=== PATIENT | male | born 1960 | race African-American/Black ===

== ENCOUNTER 2021-09-10 17:31 | Inpatient (IN) | payer MEDICARE, OTHER ==
[~2021-09-10] VITALS: Ht 177.8 cm; Wt 67.1 kg
--- NOTE | 2021-09-11 | NUR ---
GPS-SEARCH ENGINE OPTIMIZATION CONSULTANT NOTES ADMITTED A 61-Y/O, MALE, HOMELESS, PATIENT CAME FROM [facility]. ADMITTED ON A 5150 HOLD FOR GD. PER HOLD, PATIENT WAS DISORGANIZED, TANGENTIAL, DISINHIBITED, REQUIRES REDIRECTION AND UNABLE TO PROVIDE ANY PLAN FOR SELF CARE. UPON FACE TO FACE EVALUATION, PATIENT IS ALERT AND ORIENTED X1, DISORGANIZED, NON-SENSICAL, LOUD, HYPERVERBAL, INTERMITTENTLY FOLLOWING COMMANDS, COOPERATIVE TO CARE. SKIN ASSESSMENT DONE. WOUND CONSULT TRIGGERED. BELONGINGS WERE INVENTORIED AND CHECKED FOR CONTRABAND. PATIENT IS UNDER THE PSYCHIATRIC CARE OF DR. LACY AND MEDICAL CARE OF XANDER SERNA. BED IN LOW LOCKED POSITION. SAFETY PRECAUTIONS MAINTAINED. WILL CONTINUE TO MONITOR Q15 MINS FOR MOOD, SAFETY AND BEHAVIOR. NO FAMILY TO NOTIFY OF PATIENT'S ADMISSION.
[2021-09-11] MEDS ORDERED: ACETAMINOPHEN 325 MG TABLET PO PRN (00:30)
[2021-09-11] MEDS ORDERED: MAGNESIUM HYDROXIDE 30 ML UDC PO PRN (00:30)
[2021-09-11] MEDS ORDERED: MAG HYDROX/AL HYDROX/SIMETH 30 ML UDC PO PRN (00:30)
[2021-09-11] MEDS ORDERED: BLOOD SUGAR DIAGNOSTIC 1 EACH STRIP IN ONE (00:30)
[2021-09-11] MEDS ORDERED: NICO-676 TP (01:28)
[2021-09-11] MEDS ORDERED: GUAI-671 PO (01:28)
[2021-09-11] MEDS ORDERED: DIVA500T2 PO (01:28)
[2021-09-11] MEDS ORDERED: FERR325T23 PO (01:28)
[2021-09-11] MEDS ORDERED: MULT-754 PO (01:28)
[2021-09-11] MEDS ORDERED: RISP2TAB85 PO (01:28)
[2021-09-11] MEDS ORDERED: ACET-73 PO (01:28)
[2021-09-11] MEDS ORDERED: SENN-291 PO (01:28)
[2021-09-11] MEDS ORDERED: THIA100V2 IJ (01:28)
[2021-09-11] MEDS ORDERED: POLY17PO4 PO (01:28)
[2021-09-11] MEDS ORDERED: MELA5TAB PO (01:28)
[2021-09-11] MEDS ORDERED: ATOR80TA PO (01:28)
[2021-09-11] MEDS ORDERED: ASPI-1169 PO (01:28)
[2021-09-11] MEDS ORDERED: CARV3.12 PO (01:28)
[2021-09-11] MEDS ORDERED: NICO-762 TD (01:46)
[2021-09-11] MEDS ORDERED: POLYETHYLENE GLYCOL 3350 17 GM POWD.PACK PO PRN (02:00)
[2021-09-11] MEDS ORDERED: ACETAMINOPHEN ES 500 MG TABLET PO PRN (02:00)
--- NOTE | 2021-09-11 05:22 | NUR ---
closing notes: after being admitted after [address] in a green gown he went to sleep after he took his gown off his speech is garbled he is w/o teeth all the words run together and is a rapid talker
[2021-09-11] MEDS: OLANZAPINE 2.5 MG TABLET PO SCH ×2 (08:46→16:24)
[2021-09-11] MEDS: FERROUS SULFATE (325 MG) 325 MG/TAB TABLET PO SCH (08:46)
[2021-09-11] MEDS: ASPIRIN 81 MG TAB.CHEW PO SCH (08:46)
[2021-09-11] MEDS: MULTIVITAMINS,THERAGRAN 1 UDTAB TABLET PO SCH (08:46)
[2021-09-11] MEDS: DIVALPROEX SODIUM 500 MG TABLET.DR PO SCH ×2 (08:46→16:24)
[2021-09-11] MEDS: CARVEDILOL 3.125 MG TABLET PO SCH ×2 (08:47→21:03)
[2021-09-11] MEDS ORDERED: SENNOSIDES/DOCUSATE SODIUM 1 UDTAB TABLET PO SCH (09:00)
[2021-09-11] MEDS: THIAMINE HCL 100 MG TABLET PO SCH (09:00)
--- NOTE | 2021-09-11 09:06 | NUR ---
TAMAR Clinical Note: Pt placed on a 5150 hold for GD. Per hold, psychiatry consulted for bizarre/disorganized behavior. Pt is labile. Patient is currently homeless. SW attempted to discuss placement, pt was uncooperative. Pt does not have any supportive contact at this time.
--- NOTE | 2021-09-11 09:06 | NUR ---
TAMAR Initial Discharge Plan: Patient is currently homeless. SW attempted to discuss placement, pt was uncooperative. Pt does not have any supportive contact at this time. SW will work with the MD, treatment team, and pt to help coordinate appropriate discharge.
--- NOTE | 2021-09-11 09:07 | NUR ---
Treatment Plan: Pt refused to sign treatment plan and was hyperverbal/inappropriate.
[2021-09-11] MEDS: NICOTINE PATCH (21MG) 21 MG PATCH.TD24 TD SCH (10:27)
[2021-09-11] MEDS ORDERED: Medication Not On Formulary EA (Melatonin 1 TAB) PO SCH (18:00)
--- NOTE | 2021-09-11 18:35 | NUR ---
PT COMPLIANT WITH TAKEN MEDICATIONS ONCE CRUSHED AND PUT INTO THE APPLE SAUCE EACH TIME, APPEARED TO HAVE TROUBLE SWALLOWING THEM WHOLE OR JUST DID NOT LIKE THE FEELING OF IT, CRUSHED WAS EASIER AND BETTER, PT SLEPT AND THEN GOT UP AND AMBULATED IN SA[address] WAY OFTEN AND SPILLED WATER ALL OVER THE FLOOR, REDIRECTED AND WENT TO ROOM TO REST UP.
[2021-09-11] MEDS: clonazePAM 0.5 MG TABLET PO PRN (19:42)
--- NOTE | 2021-09-11 19:44 | NUR ---
RN NOTES: ANXIETY PT. C/O FEELING ANXIOUS .RESTLESS ,PARANOID, PACING IN HALLWAY ,PRN KLONOPIN 0.5 MG PO GIVEN PER PT. REQUEST, WILL CONTINUE TO MONITOR.
[2021-09-11 20:00] VITALS: BP 135/79
[2021-09-11] MEDS: ATORVASTATIN 40 MG TABLET PO SCH (21:03)
[2021-09-12] MEDS: TEMAZEPAM 7.5 MG CAPSULE PO PRN (00:07)
--- NOTE | 2021-09-12 00:08 | NUR ---
RN NOTES: INSOMNIA PT. C/O UNABLE TO SLEEP ,PRN RESTORIL 15 MG GIVEN PO FOR SLEEP WILL CONTINUE TO MONITOR.
[2021-09-12 07:32] LABS: CHOLESTEROL 124 mg/dL (<200); HDL CHOLESTEROL 68 mg/dL (40-60); LDL 41 mg/dL (0-99); TRIGLYCERIDES 39 mg/dL (30-150)
[2021-09-12 07:33] LABS: ALBUMIN 2.5 g/dL (3.4-5.0); BILIRUBIN,TOTAL 0.2 mg/dL (0.2-1.0); CREATININE 0.9 mg/dL (0.6-1.3); POTASSIUM 4.9 mmol/L (3.5-5.1)
[2021-09-12 08:00] VITALS: BP 134/59
[2021-09-12] MEDS: ASPIRIN 81 MG TAB.CHEW PO SCH (09:02)
[2021-09-12] MEDS: NICOTINE PATCH (21MG) 21 MG PATCH.TD24 TD SCH (09:02)
[2021-09-12] MEDS: SENNOSIDES 8.6 MG TABLET PO SCH (09:02)
[2021-09-12] MEDS: CARVEDILOL 3.125 MG TABLET PO SCH ×2 (09:03→21:19)
[2021-09-12] MEDS: THIAMINE HCL 100 MG TABLET PO SCH (09:03)
[2021-09-12] MEDS: DIVALPROEX SODIUM 500 MG TABLET.DR PO SCH ×2 (09:03→16:18)
[2021-09-12] MEDS: FERROUS SULFATE (325 MG) 325 MG/TAB TABLET PO SCH (09:03)
[2021-09-12] MEDS: DOCUSATE SODIUM 100 MG CAPSULE PO SCH (09:03)
[2021-09-12] MEDS: OLANZAPINE 2.5 MG TABLET PO SCH ×2 (09:03→16:18)
[2021-09-12] MEDS: MULTIVITAMINS,THERAGRAN 1 UDTAB TABLET PO SCH (09:05)
--- NOTE | 2021-09-12 10:35 | NUR ---
Court Hearing: Patient's court hearing for 3940 was today and it was upheld for GD.
--- NOTE | 2021-09-12 10:35 | NUR ---
Court Notification: Pt does not have any supportive contact to notify of 1971.
--- NOTE | 2021-09-12 10:37 | NUR ---
WOUND CARE CONSULT: PT PRESENTS WITH DRY ABRASIONS/SCABS TO LEFT LOWER LEG AND KNEE, PRESENT ON ADMISSION. NO ERYTHEMA, DRAINAGE OR TENDERNESS NOTED. WILL SEE PRN. PT IS AMBULATORY.
[2021-09-12 16:00] VITALS: BP 129/85
--- NOTE | 2021-09-12 20:06 | NUR ---
RN NOTES: PT.WATCHING TV IN DAY ROOM, CONFUSED,FLAT AFFECT,DISORGNIZED,ANXIOUS,EASILY AGITATED.PARANOID UNCOOPERTIVE, TALKING TO SELF ,HYPERVERBAL NEEDY DEMENDING ,NEEDS FREQUENTLY REDIRECTIONS, ENCOURAGED PT. TO VERBALIZED ANY FEELING OR CONCERN AND GROUP ACTIVITY, , HIGH FALL RISK,WILL CONTINUE.MONITORING FOR SAFETY AND BEHAVIOR.
[2021-09-12 20:29] VITALS: BP 107/65
[2021-09-12] MEDS: ATORVASTATIN 40 MG TABLET PO SCH (21:19)
[2021-09-12] MEDS: clonazePAM 0.5 MG TABLET PO PRN (22:37)
--- NOTE | 2021-09-12 22:38 | NUR ---
RN NOTES: ANXIETY PT. C/O FEELING ANXIOUS .RESTLESS ,PARANOID, PACING IN HALLWAY , HYPERVERBAL,PRN KLONOPIN 0.5 MG PO GIVEN PER PT. REQUEST, WILL CONTINUE WITH PLAN OF CARE.
--- NOTE | 2021-09-12 23:08 | NUR ---
GPS RN NOTE, PATIENT SODIUM LEVEL 130 ON 09/12/21 AT 0615. PAGED [facility] AND INFORMED MARCELL TREJO NP OF MY FINDINGS. MARCELL TREJO NP ORDERED SODIUM CHLORIDE TABLET 2,000MG PO DAILY. ALL ORDERS NOTED AND CARRIED OUT. WILL CONTINUE TO MONITOR THIS PATIENT WITH THE HELP OF STAFF.
[2021-09-13 08:00] VITALS: BP 131/87
[2021-09-13] MEDS: ASPIRIN 81 MG TAB.CHEW PO SCH (08:21)
[2021-09-13] MEDS: OLANZAPINE 2.5 MG TABLET PO SCH ×2 (08:21→16:21)
[2021-09-13] MEDS: DIVALPROEX SODIUM 500 MG TABLET.DR PO SCH ×2 (08:21→16:21)
[2021-09-13] MEDS: FERROUS SULFATE (325 MG) 325 MG/TAB TABLET PO SCH (08:21)
[2021-09-13] MEDS: SENNOSIDES 8.6 MG TABLET PO SCH (08:21)
[2021-09-13] MEDS: NICOTINE PATCH (21MG) 21 MG PATCH.TD24 TD SCH (08:21)
[2021-09-13] MEDS: MULTIVITAMINS,THERAGRAN 1 UDTAB TABLET PO SCH (08:21)
[2021-09-13] MEDS: THIAMINE HCL 100 MG TABLET PO SCH (08:21)
[2021-09-13] MEDS: clonazePAM 0.5 MG TABLET PO PRN ×2 (08:22→22:02)
[2021-09-13] MEDS: CARVEDILOL 3.125 MG TABLET PO SCH ×2 (08:22→21:09)
[2021-09-13] MEDS: DOCUSATE SODIUM 100 MG CAPSULE PO SCH (08:22)
[2021-09-13] MEDS: SODIUM CHLORIDE 1000 MG TABLET PO SCH (08:23)
--- NOTE | 2021-09-13 09:35 | NUR ---
RN Notes: Received pt. awake in the room, responsive to staffs and hyperverbal with garbled speech. Pt. ate 100% for breakfast, compliant on meds. Pt. is anxious and prn of Klonopin given. Pt.. is needy, needs frequent redirection and disheveled. Encouraged to verbalize feelings, motivated to attend group activity and encouraged to take shower. Needs attended and will continue to monitor for safety.
[2021-09-13 16:00] VITALS: BP 121/72
[2021-09-13 20:27] VITALS: BP 138/72
[2021-09-13] MEDS: ATORVASTATIN 40 MG TABLET PO SCH (21:09)
[2021-09-14 08:00] VITALS: BP 150/87
--- NOTE | 2021-09-14 08:10 | NUR ---
RN OPENING NOTE PATIENT AWAKE IN BED RESTING. A/O X1 CONFUSED, HYPERVERBAL, EASILY AGITATED. NO S/S OF PAIN NOTED AT THIS TIME. ON ROOM AIR, NO DISTRESS OR SHORTNESS OF BREATH NOTED. PATIENT IS COMPLIANT WITH MEDICATIONS. PATIENT DENIES SUICIDE IDEATION AND HOMICIDAL IDEATIONS AT THIS TIME. FALL AND SAFETY MEASURES IN PLACE, BED ALARM ON, BED IN LOW AND LOCK POSITION, CALL LIGHT AND TABLE WITHIN EASY REACH, SIDE RAILS UP X2. WILL CONTINUE TO MONITOR Q15 MINUTES WITH HELP OF STAFF TO MAINTAIN SAFETY.
[2021-09-14] MEDS: NICOTINE PATCH (21MG) 21 MG PATCH.TD24 TD SCH (09:38)
[2021-09-14] MEDS: DIVALPROEX SODIUM 500 MG TABLET.DR PO SCH ×2 (09:38→16:46)
[2021-09-14] MEDS: SODIUM CHLORIDE 1000 MG TABLET PO SCH (09:38)
[2021-09-14] MEDS: SENNOSIDES 8.6 MG TABLET PO SCH (09:38)
[2021-09-14] MEDS: FERROUS SULFATE (325 MG) 325 MG/TAB TABLET PO SCH (09:39)
[2021-09-14] MEDS: DOCUSATE SODIUM 100 MG CAPSULE PO SCH (09:39)
[2021-09-14] MEDS: ASPIRIN 81 MG TAB.CHEW PO SCH (09:39)
[2021-09-14] MEDS: THIAMINE HCL 100 MG TABLET PO SCH (09:39)
[2021-09-14] MEDS: OLANZAPINE 2.5 MG TABLET PO SCH ×2 (09:39→16:46)
[2021-09-14] MEDS: MULTIVITAMINS,THERAGRAN 1 UDTAB TABLET PO SCH (09:39)
[2021-09-14] MEDS: CARVEDILOL 3.125 MG TABLET PO SCH ×2 (09:40→20:16)
[2021-09-14 16:00] VITALS: BP 140/81
[2021-09-14 19:59] VITALS: BP 135/75
[2021-09-14] MEDS: ATORVASTATIN 40 MG TABLET PO SCH (21:20)
[2021-09-14] MEDS: TEMAZEPAM 7.5 MG CAPSULE PO PRN (22:44)
[2021-09-15 08:00] VITALS: BP 137/79
[2021-09-15] MEDS: NICOTINE PATCH (21MG) 21 MG PATCH.TD24 TD SCH (08:14)
[2021-09-15] MEDS: OLANZAPINE 2.5 MG TABLET PO SCH ×2 (08:14→16:15)
[2021-09-15] MEDS: MULTIVITAMINS,THERAGRAN 1 UDTAB TABLET PO SCH (08:15)
[2021-09-15] MEDS: DIVALPROEX SODIUM 500 MG TABLET.DR PO SCH ×2 (08:15→16:15)
[2021-09-15] MEDS: FERROUS SULFATE (325 MG) 325 MG/TAB TABLET PO SCH (08:15)
[2021-09-15] MEDS: THIAMINE HCL 100 MG TABLET PO SCH (08:15)
[2021-09-15] MEDS: ASPIRIN 81 MG TAB.CHEW PO SCH (08:15)
[2021-09-15] MEDS: SODIUM CHLORIDE 1000 MG TABLET PO SCH (08:15)
[2021-09-15] MEDS: CARVEDILOL 3.125 MG TABLET PO SCH ×2 (08:16→21:15)
[2021-09-15] MEDS: SENNOSIDES 8.6 MG TABLET PO SCH (08:23)
[2021-09-15] MEDS: DOCUSATE SODIUM 100 MG CAPSULE PO SCH (08:23)
--- NOTE | 2021-09-15 14:08 | NUR ---
SNF Referral: TAMAR sent clinicals to Maribell Larson ([phone]) from [facility] for placement option. SW sent h & p, progress notes, and medication list.
[2021-09-15 16:00] VITALS: BP 150/75
[2021-09-15 20:03] VITALS: BP 143/92
[2021-09-15 20:11] VITALS: BP 143/92
[2021-09-15 21:10] VITALS: BP 133/76
[2021-09-15] MEDS: ATORVASTATIN 40 MG TABLET PO SCH (21:33)
[2021-09-16] MEDS: TEMAZEPAM 7.5 MG CAPSULE PO PRN ×2 (00:30→21:35)
--- NOTE | 2021-09-16 00:32 | NUR ---
RN NOTE: INSOMNIA PATIENT IS UNABLE TO SLEEP, KEEPS WANDERING IN THE HALLWAY, PARANOID, LABILE, RESTLESS AND STATED," I CAN NOT GO TO SLEEP." PRN RESTORIL 15 MG PO ADMINISTERED ORDERED. WILL CONTINUE TO MONITOR.
[2021-09-16 08:00] VITALS: BP 143/78
[2021-09-16] MEDS: THIAMINE HCL 100 MG TABLET PO SCH (08:35)
[2021-09-16] MEDS: ASPIRIN 81 MG TAB.CHEW PO SCH (08:35)
[2021-09-16] MEDS: MULTIVITAMINS,THERAGRAN 1 UDTAB TABLET PO SCH (08:35)
[2021-09-16] MEDS: SENNOSIDES 8.6 MG TABLET PO SCH (08:35)
[2021-09-16] MEDS: DIVALPROEX SODIUM 500 MG TABLET.DR PO SCH ×2 (08:36→16:38)
[2021-09-16] MEDS: OLANZAPINE 2.5 MG TABLET PO SCH ×2 (08:36→16:38)
[2021-09-16] MEDS: CARVEDILOL 3.125 MG TABLET PO SCH ×2 (08:37→21:03)
[2021-09-16] MEDS: FERROUS SULFATE (325 MG) 325 MG/TAB TABLET PO SCH (08:37)
[2021-09-16] MEDS: DOCUSATE SODIUM 100 MG CAPSULE PO SCH (08:37)
[2021-09-16] MEDS: NICOTINE PATCH (21MG) 21 MG PATCH.TD24 TD SCH (08:38)
[2021-09-16] MEDS: SODIUM CHLORIDE 1000 MG TABLET PO SCH (09:50)
[2021-09-16 16:00] VITALS: BP 106/72
--- NOTE | 2021-09-16 19:35 | NUR ---
GPS RN OPENING NOTES: RECEIVED PATIENT AMBULATING IN HALLWAY, A/O X1. FLAT AFFECT, DISHEVELED, UNKEPT, MALODOROUS, HYPERVERBAL, DISORIENTED, DISORGANIZED, CONFUSED, DIFFICULT TO REDIRECT. NO S/S OF DISTRESS. RESPIRATION EVEN AND UNLABORED WITH EQUAL RISE AND FALL OF THE CHEST, ON ROOM AIR. OFFERED FLUID AND SNACKS TOLERATED. WILL CONTINUE TO MONITOR Q15 FOR MOOD, SAFETY AND BEHAVIOR.
[2021-09-16 20:22] VITALS: BP 127/89
[2021-09-16] MEDS: ATORVASTATIN 40 MG TABLET PO SCH (21:02)
[2021-09-16] MEDS: clonazePAM 0.5 MG TABLET PO PRN (21:04)
--- NOTE | 2021-09-16 21:11 | NUR ---
GPS RN NOTES: PATIENT IS RESTLESS, ANXIOUS, HYPERVERBAL, PACING, DIFFICULT TO REDIRECT. KLONOPIN 0.5MG GIVEN PO AT 2106. WILL CONTINUE TO MONITOR.
[2021-09-17 08:00] VITALS: BP 128/66
--- NOTE | 2021-09-17 08:00 | NUR ---
RN NOTES RECEIVED PATIENT AMBULATING IN THE ROOM, A/O X1. FLAT AFFECT, LABILE, DISHEVELED, UNKEPT, MALODOROUS, HYPERVERBAL, RESTLESS, ANXIOUS, DISORIENTED, DISORGANIZED, CONFUSED, DIFFICULT TO REDIRECT. NO S/S OF DISTRESS. RESPIRATION EVEN AND UNLABORED WITH EQUAL RISE AND FALL OF THE CHEST, ON ROOM AIR. OFFERED FLUID AND SNACKS TOLERATED. WILL CONTINUE TO MONITOR Q15 FOR MOOD, SAFETY AND BEHAVIOR.
[2021-09-17] MEDS: MULTIVITAMINS,THERAGRAN 1 UDTAB TABLET PO SCH (08:36)
[2021-09-17] MEDS: ASPIRIN 81 MG TAB.CHEW PO SCH (08:36)
[2021-09-17] MEDS: DIVALPROEX SODIUM 500 MG TABLET.DR PO SCH ×2 (08:36→17:13)
[2021-09-17] MEDS: OLANZAPINE 2.5 MG TABLET PO SCH (08:36)
[2021-09-17] MEDS: NICOTINE PATCH (21MG) 21 MG PATCH.TD24 TD SCH (08:36)
[2021-09-17] MEDS: THIAMINE HCL 100 MG TABLET PO SCH (08:36)
[2021-09-17] MEDS: DOCUSATE SODIUM 100 MG CAPSULE PO SCH (08:37)
[2021-09-17] MEDS: SENNOSIDES 8.6 MG TABLET PO SCH (08:37)
[2021-09-17] MEDS: CARVEDILOL 3.125 MG TABLET PO SCH ×2 (08:37→21:19)
[2021-09-17] MEDS: FERROUS SULFATE (325 MG) 325 MG/TAB TABLET PO SCH (08:37)
[2021-09-17] MEDS: SODIUM CHLORIDE 1000 MG TABLET PO SCH (08:37)
[2021-09-17 16:00] VITALS: BP 150/88
[2021-09-17] MEDS ORDERED: OLANZAPINE 2.5 MG TABLET PO SCH (17:00)
--- NOTE | 2021-09-17 19:15 | NUR ---
GPS RN NOTES RECEIVED PATIENT PACING IN THE HALLWAY. ALERT AND ORIENTED X2. NO S/SX OF ACUTE DISTRESS NOTED. PATIENT REMAINS ANXIOUS, DISORGANIZED, CONFUSED, LABILE, GARBLED SPEECH, PT IS FOCUSED ON FOOD. NO VERBALIZATION OF THOUGHTS AND FEELINGS. SAFETY PRECAUTIONS IN PLACE. WILL CONTINUE TO MONITOR Q15MIN ROUNDS FOR SAFETY AND BEHAVIOR.
[2021-09-17 20:00] VITALS: BP 142/97
[2021-09-17] MEDS: ATORVASTATIN 40 MG TABLET PO SCH (21:18)
[2021-09-17] MEDS: TEMAZEPAM 7.5 MG CAPSULE PO PRN (21:19)
[2021-09-17] MEDS: clonazePAM 0.5 MG TABLET PO PRN (22:12)
[2021-09-18 08:00] VITALS: BP 137/76
[2021-09-18] MEDS: SENNOSIDES 8.6 MG TABLET PO SCH (08:49)
[2021-09-18] MEDS: DOCUSATE SODIUM 100 MG CAPSULE PO SCH (08:49)
[2021-09-18] MEDS: SODIUM CHLORIDE 1000 MG TABLET PO SCH (08:49)
[2021-09-18] MEDS: MULTIVITAMINS,THERAGRAN 1 UDTAB TABLET PO SCH (08:49)
[2021-09-18] MEDS: THIAMINE HCL 100 MG TABLET PO SCH (08:49)
[2021-09-18] MEDS: ASPIRIN 81 MG TAB.CHEW PO SCH (08:49)
[2021-09-18] MEDS: FERROUS SULFATE (325 MG) 325 MG/TAB TABLET PO SCH (08:50)
[2021-09-18] MEDS: DIVALPROEX SODIUM 500 MG TABLET.DR PO SCH ×2 (08:50→17:35)
[2021-09-18] MEDS: NICOTINE PATCH (21MG) 21 MG PATCH.TD24 TD SCH (08:50)
[2021-09-18] MEDS: CARVEDILOL 3.125 MG TABLET PO SCH ×2 (08:50→21:21)
[2021-09-18] MEDS: OLANZAPINE 10 MG TABLET PO SCH ×2 (08:52→17:35)
[2021-09-18 16:00] VITALS: BP 127/96
--- NOTE | 2021-09-18 18:48 | NUR ---
RN-NOTES PATIENT IS VISIBLE IN THE UNIT,HYPERVERBAL,NEEDY,NO ACUTE DISTRESS NOTED. ABLE TO MAKE NEEDS KNOWN TO THE STAFF. AMBULATORY STEADY GAIT.ALL NEEDS ATTENDED AND ANTICIPATED. WILL CONT. MONITORING FOR SAFETY AND BEHAVIOR. WILL ENDORSE TO INCOMING NURSE FOR CONTINUITY OF CARE.
--- NOTE | 2021-09-18 19:46 | NUR ---
GPS RN OPENING NOTES: RECEIVED PATIENT AMBULATING IN HALLWAY, A/O X1. FLAT AFFECT, DISHEVELED, UNKEPT, MALODOROUS, HYPERVERBAL, DISORIENTED, DISORGANIZED, CONFUSED, DIFFICULT TO REDIRECT. NO SIGN SOB/DISTRESS NOTED.BUT NOT AGGRESSIVE TO OTHER.OFFERED FLUID AND SNACKS TOLERATED. WILL CONTINUE TO MONITOR Q15 FOR MOOD, SAFETY AND BEHAVIOR.
[2021-09-18] MEDS: ATORVASTATIN 40 MG TABLET PO SCH (21:21)
[2021-09-19] MEDS: TEMAZEPAM 7.5 MG CAPSULE PO PRN (02:46)
[2021-09-19 08:00] VITALS: BP 145/94
[2021-09-19] MEDS: THIAMINE HCL 100 MG TABLET PO SCH (08:32)
[2021-09-19] MEDS: DIVALPROEX SODIUM 500 MG TABLET.DR PO SCH ×2 (08:32→16:39)
[2021-09-19] MEDS: SODIUM CHLORIDE 1000 MG TABLET PO SCH (08:32)
[2021-09-19] MEDS: OLANZAPINE 10 MG TABLET PO SCH ×2 (08:32→16:39)
[2021-09-19] MEDS: NICOTINE PATCH (21MG) 21 MG PATCH.TD24 TD SCH (08:32)
[2021-09-19] MEDS: ASPIRIN 81 MG TAB.CHEW PO SCH (08:32)
[2021-09-19] MEDS: FERROUS SULFATE (325 MG) 325 MG/TAB TABLET PO SCH (08:32)
[2021-09-19] MEDS: DOCUSATE SODIUM 100 MG CAPSULE PO SCH (08:32)
[2021-09-19] MEDS: MULTIVITAMINS,THERAGRAN 1 UDTAB TABLET PO SCH (08:32)
[2021-09-19] MEDS: CARVEDILOL 3.125 MG TABLET PO SCH ×2 (08:33→21:25)
[2021-09-19] MEDS: SENNOSIDES 8.6 MG TABLET PO SCH (08:33)
[2021-09-19 16:06] VITALS: BP 150/68
--- NOTE | 2021-09-19 17:44 | NUR ---
RN-NOTES PATIENT IS VISIBLE IN THE UNIT,A/O X1 ,HYPERVERBAL,NEEDY, FOCUS ON COFFEE,NO ACUTE DISTRESS NOTED. ABLE TO MAKE NEEDS KNOWN TO THE STAFF. AMBULATORY STEADY GAIT.ALL NEEDS ATTENDED AND ANTICIPATED. WILL CONT. MONITORING FOR SAFETY AND BEHAVIOR. WILL ENDORSE TO INCOMING NURSE FOR CONTINUITY OF CARE.
[2021-09-19 19:58] VITALS: BP 142/91
[2021-09-19 20:56] VITALS: BP 142/90
[2021-09-19] MEDS: ATORVASTATIN 40 MG TABLET PO SCH (22:26)
[2021-09-20 08:00] VITALS: BP 136/78
[2021-09-20] MEDS: NICOTINE PATCH (21MG) 21 MG PATCH.TD24 TD SCH (08:06)
[2021-09-20] MEDS: OLANZAPINE 10 MG TABLET PO SCH ×2 (08:06→16:34)
[2021-09-20] MEDS: FERROUS SULFATE (325 MG) 325 MG/TAB TABLET PO SCH (08:06)
[2021-09-20] MEDS: SENNOSIDES 8.6 MG TABLET PO SCH (08:06)
[2021-09-20] MEDS: DOCUSATE SODIUM 100 MG CAPSULE PO SCH (08:06)
[2021-09-20] MEDS: SODIUM CHLORIDE 1000 MG TABLET PO SCH (08:06)
[2021-09-20] MEDS: DIVALPROEX SODIUM 500 MG TABLET.DR PO SCH ×2 (08:06→16:34)
[2021-09-20] MEDS: MULTIVITAMINS,THERAGRAN 1 UDTAB TABLET PO SCH (08:06)
[2021-09-20] MEDS: ASPIRIN 81 MG TAB.CHEW PO SCH (08:06)
[2021-09-20] MEDS: THIAMINE HCL 100 MG TABLET PO SCH (08:07)
[2021-09-20] MEDS: CARVEDILOL 3.125 MG TABLET PO SCH ×2 (08:07→21:09)
[2021-09-20] MEDS: clonazePAM 0.5 MG TABLET PO PRN (08:25)
--- NOTE | 2021-09-20 08:28 | NUR ---
RN-NOTES NOTED PATIENT PACING IN THE HALLWAY,TALKING TO SELF. KLONOPIN 0.5MG P.O GIVEN PRN ORDER. WILL CONT. MONITORING FOR SAFETY AND BEHAVIOR.
--- NOTE | 2021-09-20 09:30 | NUR ---
RN-NOTES PATIENT IN THE DAY ROOM SITTING IN THE CHAIR,CALM AND QUIET. NO ACUTE DISTRESS NOTED.
[2021-09-20 16:00] VITALS: BP 139/91
[2021-09-20 20:22] VITALS: BP 140/90
[2021-09-20 20:29] VITALS: BP 140/90
[2021-09-20] MEDS: ATORVASTATIN 40 MG TABLET PO SCH (21:20)
[2021-09-21 07:22] LABS: BASOPHILS # (AUTO) 0.1 K/uL (0.0-0.2); BASOPHILS % (AUTO) 0.9 % (0.0-2.0); EOSINOPHILS % (AUTO) 1.6 % (0.0-6.0); HEMATOCRIT 33 % (39-51); HEMOGLOBIN 10.5 g/dL (13.5-17.5); LYMPHOCYTES # (AUTO) 1.5 K/uL (0.8-4.8); LYMPHOCYTES % (AUTO) 27.6 % (20.0-44.0); MEAN CORPUSCULAR HGB CONC 32 g/dl (31.0-36.0); MEAN CORPUSCULAR VOLUME 88 fL (80-96); MONOCYTES # (AUTO) 0.8 K/uL (0.1-1.30); MONOCYTES % (AUTO) 13.7 % (2.0-12.0); NEUTROPHILS # (AUTO) 3.1 K/uL (1.8-8.9); NEUTROPHILS % (AUTO) 56.2 % (43.0-81.0); PLATELET COUNT (AUTO) 346 K/uL (150-450); RED BLOOD CELL COUNT(AUTO) 3.74 MIL/uL (4.5-6.0); WHITE BLOOD COUNT (AUTO) 5.6 K/uL (4.3-11.0)
[2021-09-21] MEDS: clonazePAM 0.5 MG TABLET PO PRN ×2 (07:58→21:25)
--- NOTE | 2021-09-21 07:58 | NUR ---
RN-CO: KLONOPIN GIVEN FOR RESTLESSNESS AND SPILLING MILK ON THE FLOOR.
[2021-09-21] MEDS: DIVALPROEX SODIUM 500 MG TABLET.DR PO SCH ×2 (08:00→16:07)
[2021-09-21] MEDS: MULTIVITAMINS,THERAGRAN 1 UDTAB TABLET PO SCH (08:00)
[2021-09-21] MEDS: OLANZAPINE 10 MG TABLET PO SCH ×2 (08:00→16:07)
[2021-09-21] MEDS: FERROUS SULFATE (325 MG) 325 MG/TAB TABLET PO SCH (08:01)
[2021-09-21] MEDS: SENNOSIDES 8.6 MG TABLET PO SCH (08:01)
[2021-09-21] MEDS: THIAMINE HCL 100 MG TABLET PO SCH (08:01)
[2021-09-21] MEDS: DOCUSATE SODIUM 100 MG CAPSULE PO SCH (08:02)
[2021-09-21] MEDS: ASPIRIN 81 MG TAB.CHEW PO SCH (08:02)
[2021-09-21] MEDS: SODIUM CHLORIDE 1000 MG TABLET PO SCH (08:02)
[2021-09-21] MEDS: CARVEDILOL 3.125 MG TABLET PO SCH ×2 (08:02→21:24)
[2021-09-21] MEDS: NICOTINE PATCH (21MG) 21 MG PATCH.TD24 TD SCH (08:03)
[2021-09-21 08:45] LABS: ALBUMIN 2.5 g/dL (3.4-5.0); BILIRUBIN,TOTAL 0.3 mg/dL (0.2-1.0); CALCIUM, SERUM 8.6 mg/dL (8.5-10.1); CREATININE 0.8 mg/dL (0.6-1.3); POTASSIUM 4.4 mmol/L (3.5-5.1); TOTAL PROTEIN, SERUM 6.3 g/dL (6.4-8.2)
--- NOTE | 2021-09-21 09:20 | NUR ---
RN-CO: PATIENT IS VISIBLE IN THE UNIT, DISHEVELED, UNKEMPT AND MALODOROUS. HE IS DISORGANIZED, TALKING TO HIMSELF, NEEDY. HE NEEDS CONSTANT REDIRECTION. NO ACUTE DISTRESS NOTED.
[2021-09-21 16:00] VITALS: BP 153/96
--- NOTE | 2021-09-21 19:30 | NUR ---
GPS RN OPENING NOTES: RECEIVED PATIENT AMBULATING IN HALLWAY, A/O X1. FLAT AFFECT, DISHEVELED, UNKEPT, MALODOROUS, HYPERVERBAL, DISORIENTED, DISORGANIZED, CONFUSED, NEEDS FREQUENT REDIRECTION. NO S/S OF DISTRESS. RESPIRATION EVEN AND UNLABORED WITH EQUAL RISE AND FALL OF THE CHEST, ON ROOM AIR. OFFERED FLUID AND SNACKS TOLERATED. WILL CONTINUE TO MONITOR Q15 FOR MOOD, SAFETY AND BEHAVIOR.
[2021-09-21 19:47] VITALS: BP 150/79
[2021-09-21] MEDS: ATORVASTATIN 40 MG TABLET PO SCH (21:23)
--- NOTE | 2021-09-21 21:31 | NUR ---
GPS RN NOTES: PATIENT IS RESTLESS, ANXIOUS, HYPERVERBAL, PACING, DIFFICULT TO REDIRECT. KLONOPIN 0.5MG GIVEN PO AT 2124. WILL CONTINUE TO MONITOR.
[2021-09-21] MEDS: TEMAZEPAM 7.5 MG CAPSULE PO PRN (21:58)
--- NOTE | 2021-09-21 21:59 | NUR ---
GPS RN NOTES: RESTORIL 15MG GIVEN PO AT 2158 D/T INSOMNIA. WILL CONTINUE TO MONITOR.
--- NOTE | 2021-09-22 01:26 | NUR ---
GPS RN NOTES: PATIENT REFUSED WEEKLY SKIN ASSESSMENT.
[2021-09-22 08:00] VITALS: BP 139/90
[2021-09-22] MEDS: SODIUM CHLORIDE 1000 MG TABLET PO SCH (08:11)
[2021-09-22] MEDS: CARVEDILOL 3.125 MG TABLET PO SCH ×2 (08:11→21:45)
[2021-09-22] MEDS: MULTIVITAMINS,THERAGRAN 1 UDTAB TABLET PO SCH (08:11)
[2021-09-22] MEDS: ASPIRIN 81 MG TAB.CHEW PO SCH (08:11)
[2021-09-22] MEDS: DIVALPROEX SODIUM 500 MG TABLET.DR PO SCH ×2 (08:11→16:22)
[2021-09-22] MEDS: FERROUS SULFATE (325 MG) 325 MG/TAB TABLET PO SCH (08:12)
[2021-09-22] MEDS: THIAMINE HCL 100 MG TABLET PO SCH (08:12)
[2021-09-22] MEDS: SENNOSIDES 8.6 MG TABLET PO SCH (08:12)
[2021-09-22] MEDS: OLANZAPINE 10 MG TABLET PO SCH ×2 (08:12→16:22)
[2021-09-22] MEDS: NICOTINE PATCH (21MG) 21 MG PATCH.TD24 TD SCH (08:12)
[2021-09-22] MEDS: DOCUSATE SODIUM 100 MG CAPSULE PO SCH (08:14)
[2021-09-22] MEDS: clonazePAM 0.5 MG TABLET PO PRN ×2 (08:25→21:48)
--- NOTE | 2021-09-22 08:25 | NUR ---
RN-CO: KLONOPIN 0.5 MG PO GIVEN FOR RESTLESSNESS AND IRRITABILITY.
--- NOTE | 2021-09-22 09:21 | NUR ---
RN-CO: PATIENT IS VISIBLE IN THE UNIT, CONSTANTLY GOING TO NURSING STATION TO GET ATTENTION FROM THE STAFF. HE IS EXTREMELY DISHEVELED AND MALODOROUS BUT AGRRED TO SHOWER TODAY. HE IS RESTLESS AND SPILLING JUICES AND MILK ON THE FLOOR. HE NEEDS CONSTANT REDIRECTION BECAUSE HE IS DISRUPTIVE WITH THE WORK OF THE STAFF. WE WILL CONTINUE TO MONITOR AND ATTEND TO HIS NEEDS.
[2021-09-22 16:00] VITALS: BP 113/74
--- NOTE | 2021-09-22 19:40 | NUR ---
GPS RN OPENING NOTES: RECEIVED PATIENT AMBULATING IN HALLWAY, A/O X1. FLAT AFFECT, DISHEVELED, RAMBLING SPEECH, HYPERVERBAL, DISORIENTED, DISORGANIZED, CONFUSED, NEEDS FREQUENT REDIRECTION. NO S/S OF DISTRESS. RESPIRATION EVEN AND UNLABORED WITH EQUAL RISE AND FALL OF THE CHEST, ON ROOM AIR. OFFERED FLUID AND SNACKS TOLERATED. WILL CONTINUE TO MONITOR Q15 FOR MOOD, SAFETY AND BEHAVIOR.
[2021-09-22 20:06] VITALS: BP 145/88
[2021-09-22] MEDS: ATORVASTATIN 40 MG TABLET PO SCH (21:43)
--- NOTE | 2021-09-22 21:53 | NUR ---
GPS RN NOTES: PATIENT IS RESTLESS, ANXIOUS, HYPERVERBAL, PACING, DIFFICULT TO REDIRECT. KLONOPIN 0.5MG GIVEN PO AT 2148. WILL CONTINUE TO MONITOR.
[2021-09-22] MEDS: TEMAZEPAM 7.5 MG CAPSULE PO PRN (22:32)
--- NOTE | 2021-09-22 22:34 | NUR ---
GPS RN NOTES: RESTORIL 15MG GIVEN PO AT 2232 D/T INSOMNIA. WILL CONTINUE TO MONITOR.
[2021-09-23 08:00] VITALS: BP 135/71
--- NOTE | 2021-09-23 08:15 | NUR ---
SW Discharge Note: Patient will be discharged to [facility] located at [address] [place] [id number]; ([phone]). Please arrange ambulance transportation at 1Pm. Harika franklin from [facility] accepted pt and is welcoming pt today. Pt does not have any supportive contact at this time. Pt appears to be alert and oriented x2 and is willing to go to the nursing facility. Pt denies visual/auditory hallucinations. Pt denies denies suicidal or homicidal ideation Patient will follow-up at the facility with Dr. Hartman [address] [facility] [address], [place] [address]; ([phone]) and ([employer]) Dr. Jade [address] [facility] [address], [place] [address]; ([phone]). Patient refused to sign the homeless waiver upon discharge and a copy was placed in the chart. Homeless resources were provided and include [address] information line for shelters and homeless resources. A copy of all resources given to patient was also placed in the chart. Pt presented with euthymic mood and congruent affect.
[2021-09-23] MEDS: DOCUSATE SODIUM 100 MG CAPSULE PO SCH (09:27)
[2021-09-23] MEDS: SENNOSIDES 8.6 MG TABLET PO SCH (09:27)
[2021-09-23] MEDS: MULTIVITAMINS,THERAGRAN 1 UDTAB TABLET PO SCH (09:27)
[2021-09-23] MEDS: DIVALPROEX SODIUM 500 MG TABLET.DR PO SCH (09:28)
[2021-09-23] MEDS: OLANZAPINE 10 MG TABLET PO SCH (09:28)
[2021-09-23] MEDS: SODIUM CHLORIDE 1000 MG TABLET PO SCH (09:28)
[2021-09-23] MEDS: FERROUS SULFATE (325 MG) 325 MG/TAB TABLET PO SCH (09:28)
[2021-09-23] MEDS: ASPIRIN 81 MG TAB.CHEW PO SCH (09:28)
[2021-09-23] MEDS: THIAMINE HCL 100 MG TABLET PO SCH (09:28)
[2021-09-23 09:29] VITALS: BP 138/72
[2021-09-23] MEDS: CARVEDILOL 3.125 MG TABLET PO SCH (09:29)
[2021-09-23] MEDS: NICOTINE PATCH (21MG) 21 MG PATCH.TD24 TD SCH (09:29)
--- NOTE | 2021-09-23 15:16 | NUR ---
Patient discharged to [facility] in stable condition.Compliant with medications ,cooperative with treatment plans Patient denies SI/HI/AVH .Behavior improved ,psychiatric tx plans met ,medical tx plans differed for for continual monitoring Educated pt about after care plan (Exit -care)and copy provided Returned personal belongings to patient med list given and explained to patient able to verbalize understanding, report given to Jenise RN in facility .Vs stable ,no c/o pain .Patient seen by Giacomo WHITTAKER covering (psychiatrist) and Yun POWER AND RECOVERY SUPERVISOR called back with discharge orders .Patient discharge at 1330 with ambulance.
== END 2021-09-23 13:15 | DRG 885 ==
LOC: GPS 23:48
PROVIDERS: ADMIT Nurse Practitioner Psychiatric/Mental Health; ATTEND Registered Nurse
DX: F20.9 Schizophrenia, unspecified (principal); I11.0 Hypertensive heart disease with heart failure; E87.1 Hypo-osmolality and hyponatremia; F29 Unspecified psychosis not due to a substance or known physiological condition; Z59.00 Homelessness unspecified; Z73.6 Limitation of activities due to disability; Z79.82 Long term (current) use of aspirin; Z79.899 Other long term (current) drug therapy; Z86.73 Personal history of transient ischemic attack (TIA), and cerebral infarction without residual deficits; I50.9 Heart failure, unspecified; E78.5 Hyperlipidemia, unspecified; E88.09 Other disorders of plasma-protein metabolism, not elsewhere classified; F41.9 Anxiety disorder, unspecified; G47.00 Insomnia, unspecified; E11.9 Type 2 diabetes mellitus without complications
CPT/HCPCS: 36415; 80053-TC; 80061-TC; 80164-TC; 82140-TC; 82962-TC; 85025-TC; 87081-TC; 97116-TC; 97530-TC